=== PATIENT | male | born 1970 | race African-American/Black ===

== ENCOUNTER 2017-01-14 08:30 | Inpatient (IN) | payer OTHER ==
[2017-01-14 09:29] VITALS: BMI 32.9
--- NOTE | 2017-01-14 12:22 | HP ---
COWS - Scale Resting Pulse: 1= [place] 81-100 Sweatin=Flushed/Facial Moisture Restless Observation: 1= Difficult to Sit Still Pupil Size: 0= Normal to Room Light Bone or Joint Aches: 2= Severe Diffuse Aches Runny Nose/ Eye Tearin= Nasal Congestion GI Upset > 30mins: 1= Stomach Cramp Tremor Observation: 2= Slight Tremor Visible Yawning Observation: 2= >3x During Session Anxiety or Irritability: 2=Irritable/Anxious Goose Flesh Skin: 3=Piloerection COWS Score: 17 Admission ROS BHS - HPI Chief Complaint: I need to stop and change and get my life back. Allergies/Adverse Reactions: Allergies Allergy/AdvReac Type Severity Reaction Status Date / Time No Known Allergies Allergy Verified 01/14/17 10:25 History of Present Illness: pt is a 46yr old male with a history of heroin dependence seeking detox for treatment. Exam Limitations: No Limitations - Ebola screening Have you traveled outside of the country in the last 21 days: No Have you had contact with anyone from an Ebola affected area: No Have you been sick,other than usual withdrawal symptoms: No Do you have a fever: No - Review of Systems Constitutional: No Symptoms Reported EENT: reports: Nose Congestion Respiratory: reports: No Symptoms reported Cardiac: reports: No Symptoms Reported GI: reports: Poor Fluid Intake : reports: No Symptoms Reported Musculoskeletal: reports: No Symptoms Reported Integumentary: reports: Flushing, Sweating Neuro: reports: No Symptoms reported Endocrine: reports: Excessive Sweating, Flushing Hematology: reports: No Symptoms Reported Psychiatric: reports: Judgement Intact, Mood/Affect Appropiate, Orientated x3, Agitated, Anxious Other Systems: Reviewed and Negative Patient History - Patient Medical History Hx Anemia: No Hx Asthma: Yes (as a child) Hx Chronic Obstructive Pulmonary Disease (COPD): No Hx Cancer: No Hx Cardiac Disorders: No Hx Congestive Heart Failure: No Hx Hypertension: No Hx Hypercholesterolemia: No Hx Pacemaker: No HX Cerebrovascular Accident: No Hx Seizures: No Hx Dementia: No Hx Diabetes: No Hx Gastrointestinal Disorders: No Hx Liver Disease: No Hx Genitourinary Disorders: No Hx Sexually Transmitted Disorders: No Hx Renal Disease (ESRD): No Hx Thyroid Disease: No Hx Human Immunodeficiency Virus (HIV): No (negative) Hx Hepatitis C: No (negative) Hx Depression: No Hx Suicide Attempt: No (denies) Hx Bipolar Disorder: No Hx Schizophrenia: No - Patient Surgical History Past Surgical History: No Hx Neurologic Surgery: No Hx Cataract Extraction: No Hx Cardiac Surgery: No Hx Lung Surgery: No Hx Breast Surgery: No Hx Breast Biopsy: No Hx Abdominal Surgery: No Hx Appendectomy: No Hx Cholecystectomy: No Hx Genitourinary Surgery: No Hx Section: No Hx Orthopedic Surgery: No Anesthesia Reaction: No - PPD History Previous Implant?: Yes Documented Results: Negative w/o proof Implanted On Prior R Admission?: No PPD to be Administered?: Yes - Reproductive History Patient is a Female of Child Bearing Age (11 -55 yrs old): No - Smoking Cessation Smoking history: Current every day smoker Have you smoked in the past 12 months: Yes Aproximately how many cigarettes per day: 20 Hx Chewing Tobacco Use: No Initiated information on smoking cessation: Yes 'Breaking Loose' booklet given: 01/14/17 - Substance & Tx. History Hx Alcohol Use: No Hx Substance Use: Yes Substance Use Type: Heroin Hx Substance Use Treatment: Yes (last detox a year ago [facility] in [place]) - Substances Abused Heroin Route: Inhalation Frequency: Daily Amount used: 10 bags Age of first use: 35 Date of Last Use: 01/13/17 Family Disease History - Family Disease History Family History: Denies Admission Physical Exam BHS - Vital Signs Vital Signs: Vital Signs - 24 hr 01/14/17 09:26 Temperature 97.9 F Pulse Rate 94 H Respiratory 20 Rate Blood Pressure 111/76 - Physical General Appearance: Yes: Appropriately Dressed, Mild Distress, Tremorous, Irritable, Sweating, Anxious HEENTM: Yes: Hearing grossly Normal, Normal Voice, Nasal Congestion, Rhinorrhea Respiratory: Yes: Lungs Clear, Normal Breath Sounds, No Respiratory Distress Neck: Yes: No masses,lesions,Nodules Breast: Yes: Within Normal Limits Cardiology: Yes: Regular Rhythm, Regular Rate, S1, S2 Abdominal: Yes: Normal Bowel Sounds, Non Tender, Soft Genitourinary: Yes: Within Normal Limits Back: Yes: Normal Inspection Musculoskeletal: Yes: full range of Motion, Back pain Extremities: Yes: Normal Capillary Refill, Normal Inspection, Non-Tender, Tremors Neurological: Yes: Fully Oriented, Alert, Normal Response Integumentary: Yes: Normal Color, Diaphoresis Lymphatic: Yes: Within Normal Limits - Diagnostic (1) Opioid dependence with withdrawal Current Visit: Yes Status: Chronic (2) Nicotine dependence Current Visit: Yes Status: Chronic Qualifiers: Nicotine product type: cigarettes Substance use status: uncomplicated Qualified Code(s): F17.210 - Nicotine dependence, cigarettes, uncomplicated Cleared for Admission BHS - Detox or Rehab [facility] Level of Care: Medically Managed Detox Regimen/Protocol: Methadone S Breath Alcohol Content Breath Alcohol Content: 0 Urine Drug Screen - Results Drug Screen Negative: No Urine Drug Screen Results: OPI-Opiates
[2017-01-14] MEDS ORDERED: MAGNESIUM CITRATE 300 ML BOTTLE PO PRN (12:23)
[2017-01-14] MEDS ORDERED: P-EPHED 60MG/TRIPROLIDI 2.5MG TABLET PO PRN (12:23)
[2017-01-14] MEDS ORDERED: NICOTINE POLACRILEX 4 MG GUM BC PRN (12:23)
[2017-01-14] MEDS ORDERED: MAGNESIUM HYDROX 2400MG/30ML ORAL SUSPENSION 30 ML CUP PO PRN (12:23)
[2017-01-14] MEDS ORDERED: MAG HYDROX/AL HYDROX/SIMETH 30 ML UNIT-DOSE CUP PO PRN (12:23)
[2017-01-14] MEDS ORDERED: guaiFENesin/D-METHORPHAN HB 10 ML UNIT-DOSE CUPS PO PRN (12:23)
[2017-01-14] MEDS ORDERED: IBUPROFEN 400 MG TABLET (FP) PO PRN (12:23)
[2017-01-14] MEDS ORDERED: LOPERAMIDE HCL 2 MG CAPSULE PO PRN (12:23)
[2017-01-14] MEDS ORDERED: MENTHOL/PHENOL 1 EACH UD MM PRN (12:23)
[2017-01-14] MEDS ORDERED: ACETAMINOPHEN 325 MG TABLET (FP) PO PRN (12:23)
[2017-01-14] MEDS ORDERED: hydrOXYzine PAMOATE 50 MG CAPSULE (FP) PO PRN (12:23)
[2017-01-14] MEDS ORDERED: METHADONE HCL 10 MG TABLET (FOR DETOX USE ONLY) PO ONE ×2 (13:30→23:00)
[2017-01-14] MEDS: diazePAM 5 MG TABLET PO PRN ×2 (13:32→22:38)
[2017-01-14 17:33] LABS: MCH 26.8 pg (25.7-33.7); MCHC 33.1 g/dl (32.0-35.9); MEAN PLT VOLUME 8.5 fl (7.5-11.1); PLATELET COUNT 248 K/MM3 (134-434); RDW 15.9 % (11.9-15.9); WHITE BLOOD COUNT 12.2 K/mm3 (4.0-10.0)
[2017-01-14 17:41] LABS: URINE APPEARANCE CLEAR; URINE BILIRUBIN NEGATIVE (NEGATIVE); URINE BLOOD 1+ (NEGATIVE); URINE COLOR YELLOW; URINE GLUCOSE (UA) NEGATIVE (NEGATIVE); URINE KETONE NEGATIVE (NEGATIVE); URINE LEUK ESTERASE NEGATIVE (NEGATIVE); URINE NITRITE NEGATIVE (NEGATIVE); URINE PROTEIN NEGATIVE (NEGATIVE); URINE UROBILINOGEN NEGATIVE mg/dL (0.2-1.0)
[2017-01-14 17:47] LABS: URINE MUCUS RARE; URINE RBC 1 /hpf (0-3); URINE WBC 1 /hpf (3-5)
[2017-01-14 18:56] LABS: ANION GAP 9 (8-16); CALCIUM 9.1 mg/dL (8.5-10.1); CO2 27 mmol/L (21-32); CREATININE 1.1 mg/dL (0.7-1.3); GLUCOSE,RANDOM 90 mg/dL (74-106); SGOT/AST 11 U/L (15-37); SGPT/ALT 20 U/L (12-78)
[2017-01-14 18:58] LABS: ALK PHOS 81 U/L (45-117); BILIRUBIN,TOTAL 0.6 mg/dL (0.2-1.0); TOT PROT 7.2 g/dl (6.4-8.2)
[2017-01-14] MEDS: THIAMINE HCL 100 MG TABLET (FP) PO SCH (22:38)
[2017-01-14] MEDS: diphenhydrAMINE HCL 50 MG CAPSULE PO PRN (22:39)
[2017-01-15] MEDS ORDERED: METHADONE HCL 10 MG TABLET (FOR DETOX USE ONLY) PO ONE (10:00)
[2017-01-15] MEDS: PRENATAL VITAMINS W/ FOLIC ACID TABLET (FP) PO SCH (10:34)
[2017-01-15] MEDS: NICOTINE 21 MG/24 HOURS TOPICAL PATCH TD SCH (10:35)
--- NOTE | 2017-01-15 11:55 | PN ---
S COWS - Scale Resting Pulse: 1= [place] 81-100 Sweatin= Chills/Flushing Restless Observation: 1= Difficult to Sit Still Pupil Size: 1= Pupils >than Normal Bone or Joint Aches: 1= Mild Discomfort Runny Nose/ Eye Tearin= Nasal Congestion GI Upset > 30mins: 2= Nausea/Diarrhea Tremor Observation of Outstretched Hands: 2= Slight Tremor Visible Yawning Observation: 1= 1-2x During Session Anxiety or Irritability: 2=Irritable/Anxious Goose Flesh Skin: 3=Piloerection COWS Score: 16 BHS Progress Note (SOAP) Subjective: [place]a, sweats, interrupted sleep, anxiety, tremors Objective: 01/15/17 11:54 Vital Signs - 24 hr 01/14/17 01/14/17 01/14/17 14:44 17:44 22:03 Temperature 97.9 F 97.9 F 98.0 F Pulse Rate 96 H 83 81 Respiratory 18 18 18 Rate Blood Pressure 111/63 106/75 116/77 01/15/17 01/15/17 01/15/17 00:30 03:30 06:48 Temperature 97.7 F Pulse Rate 78 Respiratory 18 18 18 Rate Blood Pressure 119/70 01/15/17 10:14 Temperature 98.2 F Pulse Rate 90 Respiratory 18 Rate Blood Pressure 122/86 Laboratory Tests 01/14/17 01/14/17 01/14/17 12:00 13:00 13:00 WBC 12.2 H RBC 5.38 Hgb 14.4 Hct 43.6 MCV 81.0 MCH 26.8 MCHC 33.1 RDW 15.9 Plt Count 248 MPV 8.5 Sodium 142 Potassium 4.7 Chloride 106 Carbon Dioxide 27 Anion Gap 9 BUN 16 Creatinine 1.1 Creat Clearance w eGFR > 60 Random Glucose 90 Calcium 9.1 Total Bilirubin 0.6 AST 11 L ALT 20 Alkaline Phosphatase 81 Total Protein 7.2 Albumin 4.0 Urine Color Yellow Urine Appearance Clear Urine pH 5.0 Ur Specific [place] 1.025 Urine Protein Negative Urine Glucose (UA) Negative Urine Ketones Negative Urine Blood 1+ H Urine Nitrite Negative Urine Bilirubin Negative Urine Urobilinogen Negative Ur Leukocyte Esterase Negative Urine RBC 1 Urine WBC 1 Ur Epithelial Cells Rare Urine Mucus Rare RPR Titer 01/14/17 13:00 WBC RBC Hgb Hct MCV MCH MCHC RDW Plt Count MPV Sodium Potassium Chloride Carbon Dioxide Anion Gap BUN Creatinine Creat Clearance w eGFR Random Glucose Calcium Total Bilirubin AST ALT Alkaline Phosphatase Total Protein Albumin Urine Color Urine Appearance Urine pH Ur Specific [place] Urine Protein Urine Glucose (UA) Urine Ketones Urine Blood Urine Nitrite Urine Bilirubin Urine Urobilinogen Ur Leukocyte Esterase Urine RBC Urine WBC Ur Epithelial Cells Urine Mucus RPR Titer Nonreactive Assessment: 01/15/17 11:55 withdrawal sx Plan: cont detox, fluids
--- NOTE | 2017-01-15 12:32 | EKG ---
Test Reason : Blood Pressure : / mmHG Vent. Rate : 089 BPM Atrial Rate : 089 BPM P-R Int : 144 ms QRS Dur : 074 ms QT Int : 332 ms P-R-T Axes : 045 048 019 degrees QTc Int : 403 ms NORMAL SINUS RHYTHM NONSPECIFIC T WAVE ABNORMALITY ABNORMAL ECG NO PREVIOUS ECGS AVAILABLE Confirmed by JUAINTA WARE MD ([id number]) on 01/15/2017 12:31:44 PM Referred By: Confirmed By:JUANITA WARE MD
[2017-01-15] MEDS: diazePAM 5 MG TABLET PO PRN (22:55)
[2017-01-15] MEDS: diphenhydrAMINE HCL 50 MG CAPSULE PO PRN (22:55)
[2017-01-15] MEDS: THIAMINE HCL 100 MG TABLET (FP) PO SCH (22:55)
--- NOTE | 2017-01-16 09:52 | PN ---
S COWS - Scale Resting Pulse: 1= [place] 81-100 Sweatin= Chills/Flushing Restless Observation: 1= Difficult to Sit Still Pupil Size: 1= Pupils >than Normal Bone or Joint Aches: 1= Mild Discomfort Runny Nose/ Eye Tearin= Nasal Congestion GI Upset > 30mins: 2= Nausea/Diarrhea Tremor Observation of Outstretched Hands: 2= Slight Tremor Visible Yawning Observation: 1= 1-2x During Session Anxiety or Irritability: 2=Irritable/Anxious Goose Flesh Skin: 3=Piloerection COWS Score: 16 BHS Progress Note (SOAP) Subjective: nausea, sweats, interrupted sleep, anxiety, tremors Objective: 01/16/17 09:52 Vital Signs - 24 hr 01/15/17 01/15/17 01/15/17 10:14 14:16 20:11 Temperature 98.2 F 98.4 F 98.2 F Pulse Rate 90 93 H 99 H Respiratory 18 18 20 Rate Blood Pressure 122/86 105/70 114/68 01/15/17 01/16/17 01/16/17 21:32 00:30 06:53 Temperature 99.1 F 98.1 F Pulse Rate 71 95 H Respiratory 16 18 20 Rate Blood Pressure 145/88 113/72 Laboratory Tests 01/14/17 01/14/17 01/14/17 12:00 13:00 13:00 WBC 12.2 H RBC 5.38 Hgb 14.4 Hct 43.6 MCV 81.0 MCH 26.8 MCHC 33.1 RDW 15.9 Plt Count 248 MPV 8.5 Sodium 142 Potassium 4.7 Chloride 106 Carbon Dioxide 27 Anion Gap 9 BUN 16 Creatinine 1.1 Creat Clearance w eGFR > 60 Random Glucose 90 Calcium 9.1 Total Bilirubin 0.6 AST 11 L ALT 20 Alkaline Phosphatase 81 Total Protein 7.2 Albumin 4.0 Urine Color Yellow Urine Appearance Clear Urine pH 5.0 Ur Specific [place] 1.025 Urine Protein Negative Urine Glucose (UA) Negative Urine Ketones Negative Urine Blood 1+ H Urine Nitrite Negative Urine Bilirubin Negative Urine Urobilinogen Negative Ur Leukocyte Esterase Negative Urine RBC 1 Urine WBC 1 Ur Epithelial Cells Rare Urine Mucus Rare RPR Titer 01/14/17 13:00 WBC RBC Hgb Hct MCV MCH MCHC RDW Plt Count MPV Sodium Potassium Chloride Carbon Dioxide Anion Gap BUN Creatinine Creat Clearance w eGFR Random Glucose Calcium Total Bilirubin AST ALT Alkaline Phosphatase Total Protein Albumin Urine Color Urine Appearance Urine pH Ur Specific [place] Urine Protein Urine Glucose (UA) Urine Ketones Urine Blood Urine Nitrite Urine Bilirubin Urine Urobilinogen Ur Leukocyte Esterase Urine RBC Urine WBC Ur Epithelial Cells Urine Mucus RPR Titer Nonreactive Assessment: 01/16/17 09:52 [email or web address] sx Plan: cont detox
[2017-01-16] MEDS ORDERED: METHADONE HCL 5 MG TABLET (FOR DETOX USE ONLY) PO ONE (10:00)
[2017-01-16] MEDS: PRENATAL VITAMINS W/ FOLIC ACID TABLET (FP) PO SCH (10:10)
[2017-01-16] MEDS: diazePAM 5 MG TABLET PO PRN (10:10)
[2017-01-16] MEDS: NICOTINE 21 MG/24 HOURS TOPICAL PATCH TD SCH (10:11)
[2017-01-16] MEDS ORDERED: ONDANSETRON *ODT* 4 MG TABLET SL PRN (12:06)
[2017-01-16] MEDS ORDERED: ONDANSETRON *ODT* 4 MG TABLET SL ONE (12:30)
[2017-01-16] MEDS: GABAPENTIN 100 MG CAPSULE (FP) PO SCH ×2 (14:00→22:20)
[2017-01-16] MEDS: CYCLOBENZAPRINE HCL 10 MG TABLET (FP) PO SCH ×2 (14:00→22:20)
[2017-01-16] MEDS: THIAMINE HCL 100 MG TABLET (FP) PO SCH (22:20)
[2017-01-16] MEDS: cloNIDine HCL 0.1 MG TABLET PO SCH (22:20)
[2017-01-16] MEDS: NAPROXEN 500 MG TABLET (FP) PO SCH (22:20)
[2017-01-17] MEDS: diazePAM 5 MG TABLET PO PRN (05:42)
[2017-01-17] MEDS: GABAPENTIN 100 MG CAPSULE (FP) PO SCH ×3 (05:42→22:14)
[2017-01-17] MEDS: CYCLOBENZAPRINE HCL 10 MG TABLET (FP) PO SCH ×3 (05:42→22:14)
[2017-01-17] MEDS ORDERED: PANTOPRAZOLE 40 MG TABLET (FP) PO SCH (10:00)
[2017-01-17] MEDS ORDERED: METHADONE HCL 5 MG TABLET (FOR DETOX USE ONLY) PO ONE ×2 (10:00)
[2017-01-17] MEDS: cloNIDine HCL 0.1 MG TABLET PO SCH ×2 (10:20→22:14)
[2017-01-17] MEDS: NAPROXEN 500 MG TABLET (FP) PO SCH ×2 (10:20→22:14)
[2017-01-17] MEDS: PRENATAL VITAMINS W/ FOLIC ACID TABLET (FP) PO SCH (10:21)
[2017-01-17] MEDS: NICOTINE 21 MG/24 HOURS TOPICAL PATCH TD SCH (10:21)
--- NOTE | 2017-01-17 12:14 | PN ---
BHS Progress Note (SOAP) Subjective: interrupted sleep, shakes and sweats Objective: 01/17/17 12:13 Vital Signs - 8 hr 01/17/17 01/17/17 06:48 10:00 Temperature 97.0 F L 98.4 F Pulse Rate 104 H 86 Respiratory 18 18 Rate Blood Pressure 137/110 104/71 Laboratory Last Values WBC 12.2 K/mm3 (4.0-10.0) H 01/14/17 13:00 RBC 5.38 M/mm3 (4.00-5.60) 01/14/17 13:00 Hgb 14.4 GM/dL (11.7-16.9) 01/14/17 13:00 Hct 43.6 % (35.4-49) 01/14/17 13:00 MCV 81.0 fl (80-96) 01/14/17 13:00 MCH 26.8 pg (25.7-33.7) 01/14/17 13:00 MCHC 33.1 g/dl (32.0-35.9) 01/14/17 13:00 RDW 15.9 % (11.9-15.9) 01/14/17 13:00 Plt Count 248 K/MM3 (134-434) 01/14/17 13:00 MPV 8.5 fl (7.5-11.1) 01/14/17 13:00 Sodium 142 mmol/L (136-145) 01/14/17 13:00 Potassium 4.7 mmol/L (3.5-5.1) 01/14/17 13:00 Chloride 106 mmol/L (98-107) 01/14/17 13:00 Carbon Dioxide 27 mmol/L (21-32) 01/14/17 13:00 Anion Gap 9 (8-16) 01/14/17 13:00 BUN 16 mg/dL (7-18) 01/14/17 13:00 Creatinine 1.1 mg/dL (0.7-1.3) 01/14/17 13:00 Creat Clearance w eGFR > 60 (>60) 01/14/17 13:00 Random Glucose 90 mg/dL (74-106) 01/14/17 13:00 Calcium 9.1 mg/dL (8.5-10.1) 01/14/17 13:00 Total Bilirubin 0.6 mg/dL (0.2-1.0) 01/14/17 13:00 AST 11 U/L (15-37) L 01/14/17 13:00 ALT 20 U/L (12-78) 01/14/17 13:00 Alkaline Phosphatase 81 U/L (45-117) 01/14/17 13:00 Total Protein 7.2 g/dl (6.4-8.2) 01/14/17 13:00 Albumin 4.0 g/dl (3.4-5.0) 01/14/17 13:00 Urine Color Yellow 01/14/17 12:00 Urine Appearance Clear 01/14/17 12:00 Urine pH 5.0 (5.0-8.0) 01/14/17 12:00 Ur Specific [place] 1.025 (1.005-1.025) 01/14/17 12:00 Urine Protein Negative (NEGATIVE) 01/14/17 12:00 Urine Glucose (UA) Negative (NEGATIVE) 01/14/17 12:00 Urine Ketones Negative (NEGATIVE) 01/14/17 12:00 Urine Blood 1+ (NEGATIVE) H 01/14/17 12:00 Urine Nitrite Negative (NEGATIVE) 01/14/17 12:00 Urine Bilirubin Negative (NEGATIVE) 01/14/17 12:00 Urine Urobilinogen Negative mg/dL (0.2-1.0) 01/14/17 12:00 Ur Leukocyte Esterase Negative (NEGATIVE) 01/14/17 12:00 Urine RBC 1 /hpf (0-3) 01/14/17 12:00 Urine WBC 1 /hpf (3-5) 01/14/17 12:00 Ur Epithelial Cells Rare /hpf (FEW) 01/14/17 12:00 Urine Mucus Rare 01/14/17 12:00 RPR Titer Nonreactive (NONREACTIVE) 01/14/17 13:00 lab noted Assessment: 01/17/17 12:14 withdrawal sx Plan: continue detox
[2017-01-17] MEDS: diphenhydrAMINE HCL 50 MG CAPSULE PO PRN (22:14)
[2017-01-17] MEDS: THIAMINE HCL 100 MG TABLET (FP) PO SCH (22:14)
[2017-01-18] MEDS: GABAPENTIN 100 MG CAPSULE (FP) PO SCH (05:24)
[2017-01-18] MEDS: CYCLOBENZAPRINE HCL 10 MG TABLET (FP) PO SCH (05:24)
[2017-01-18] MEDS: cloNIDine HCL 0.1 MG TABLET PO SCH (09:43)
[2017-01-18] MEDS: NAPROXEN 500 MG TABLET (FP) PO SCH (09:44)
[2017-01-18] MEDS: PRENATAL VITAMINS W/ FOLIC ACID TABLET (FP) PO SCH (09:44)
[2017-01-18] MEDS ORDERED: METHADONE HCL 10 MG TABLET (FOR DETOX USE ONLY) PO ONE (10:00)
[2017-01-18] MEDS ORDERED: METHADONE HCL 5 MG TABLET (FOR DETOX USE ONLY) PO ONE (10:00)
[2017-01-18 10:43] VITALS: BP 104/57; PULSE 92; TEMP 98.2
[2017-01-19] MEDS ORDERED: METHADONE HCL 5 MG TABLET (FOR DETOX USE ONLY) PO ONE (06:00)
== END 2017-01-18 10:01 | disposition home or self-care (01) | DRG 773 ==
LOC: YASAS 08:30 → Y6N 11:49
PROVIDERS: ADMIT Internal Medicine Addiction Medicine; ATTEND Internal Medicine Addiction Medicine
PROC: HZ2ZZZZ Detoxification Services for Substance Abuse Treatment (ICD-10-PCS; principal; 2017-01-14)
DX: F11.23 Opioid dependence with withdrawal (principal); F17.210 Nicotine dependence, cigarettes, uncomplicated
CPT/HCPCS: 36415; 80053; 81003; 81015; 85027; 86593; 93005; 93010

== ENCOUNTER 2017-05-21 08:16 | Inpatient (IN) | payer OTHER ==
[2017-05-21 09:17] VITALS: BMI 34.6
--- NOTE | 2017-05-21 10:53 | HP ---
COWS - Scale Resting Pulse: 2= [place] 101-120 Sweatin= Chills/Flushing Restless Observation: 1= Difficult to Sit Still Pupil Size: 1= Pupils >than Normal Bone or Joint Aches: 1= Mild Discomfort Runny Nose/ Eye Tearin= Nasal Congestion GI Upset > 30mins: 2= Nausea/Diarrhea Tremor Observation: 1= Tremor [place], Not Seen Yawning Observation: 1= 1-2x During Session Anxiety or Irritability: 2=Irritable/Anxious Goose Flesh Skin: 3=Piloerection COWS Score: 16 Admission ROS S - HPI Chief Complaint: c/o heroin withdrawal sx Allergies/Adverse Reactions: Allergies Allergy/AdvReac Type Severity Reaction Status Date / Time No Known Allergies Allergy Verified 05/21/17 09:22 History of Present Illness: 47yo m who was detoxed last month off of heroin relapsed to daiy use, reports onlyusing heorin although uds shows oxycodoen, benzodiazepine, tca, and methadone. no alcohol reported smokes 1PPD PMHx anxiety, depression and insomnia, c/o thirst no siezurss, or DTs, no SI at ths time. Yoav is requesting accelerated detox from methadone so he can leave early for drug testing in [place]. eliminated second 10mg dose, so 4 day detox not 5 - can extend if chasidy requests. Exam Limitations: No Limitations - Ebola screening Have you traveled outside of the country in the last 21 days: No (N) Have you had contact with anyone from an Ebola affected area: No Have you been sick,other than usual withdrawal symptoms: No Do you have a fever: No - Review of Systems Constitutional: Chills, Night Sweats, Changes in sleep, Weakness EENT: reports: Tearing, Nose Congestion Respiratory: reports: No Symptoms reported Cardiac: reports: No Symptoms Reported GI: reports: Diarrhea, Nausea, Poor Appetite, Poor Fluid Intake, Indigestion, Abdominal cramping : reports: No Symptoms Reported Musculoskeletal: reports: Back Pain, Joint Pain, Muscle Pain Integumentary: reports: Flushing, Sweating Neuro: reports: Headache, Tremors Endocrine: reports: Flushing Hematology: reports: No Symptoms Reported, Swollen Glands Psychiatric: reports: Judgement Intact, Mood/Affect Appropiate, Orientated x3, Agitated, Anxious, Depressed Other Systems: Reviewed and Negative Patient History - Patient Medical History Hx Anemia: No Hx Asthma: No Hx Chronic Obstructive Pulmonary Disease (COPD): No Hx Cancer: No Hx Cardiac Disorders: No Hx Congestive Heart Failure: No Hx Hypertension: No Hx Hypercholesterolemia: No Hx Pacemaker: No HX Cerebrovascular Accident: No Hx Seizures: No Hx Dementia: No Hx Diabetes: No Hx Gastrointestinal Disorders: No Hx Liver Disease: No Hx Genitourinary Disorders: No Hx Sexually Transmitted Disorders: No Hx Renal Disease (ESRD): No Hx Thyroid Disease: No Hx Human Immunodeficiency Virus (HIV): No (Last Tested: 2015: NEGATIVE.) Hx Hepatitis C: No (Last Tested: 2011: NEGATIVE.) Hx Depression: Yes Hx Suicide Attempt: No Hx Bipolar Disorder: No Hx Schizophrenia: No - Patient Surgical History Past Surgical History: No Hx Neurologic Surgery: No Hx Cataract Extraction: No Hx Cardiac Surgery: No Hx Lung Surgery: No Hx Breast Surgery: No Hx Breast Biopsy: No Hx Abdominal Surgery: No Hx Appendectomy: No Hx Cholecystectomy: No Hx Genitourinary Surgery: No Hx Section: No Hx Orthopedic Surgery: No Anesthesia Reaction: No - PPD History Previous Implant?: Yes Documented Results: Negative w/proof Date: 01/16/17 Results: 0 mm PPD to be Administered?: No - Reproductive History Patient is a Female of Child Bearing Age (11 -55 yrs old): No Patient : No - Smoking Cessation Smoking history: Current every day smoker Have you smoked in the past 12 months: Yes Aproximately how many cigarettes per day: 20 Cigars Per Day: 0 Hx Chewing Tobacco Use: No Initiated information on smoking cessation: Yes 'Breaking Loose' booklet given: 05/21/17 - Substance & Tx. History Hx Alcohol Use: No Hx Substance Use: Yes Substance Use Type: Heroin, Opiates Hx Substance Use Treatment: Yes ([facility]) - Substances Abused Heroin Route: Inhalation Frequency: Daily Amount used: 8 bags daily Age of first use: 35 Date of Last Use: 05/20/17 Family Disease History - Family Disease History Family History: Denies Admission Physical Exam BHS - Vital Signs Vital Signs: Vital Signs - 24 hr 05/21/17 09:16 Temperature 98.2 F Pulse Rate 102 H Respiratory 18 Rate Blood Pressure 118/69 - Physical General Appearance: Yes: No Apparent Distress, Nourished, Appropriately Dressed , Disheveled, Mild Distress, Irritable, Sweating, Anxious HEENTM: Yes: EOMI, Hearing grossly Normal, Normocephalic, Normal Voice, ALBER, Nasal Congestion, Rhinorrhea Respiratory: Yes: Within Normal Limits, Chest Non-Tender, Lungs Clear, No Respiratory Distress, No Accessory Muscle Use Neck: Yes: Within Normal Limits, No masses,lesions,Nodules, Trachea in good position Breast: Yes: Breast Exam Deferred Cardiology: Yes: Within Normal Limits, Regular Rhythm, Regular Rate, S1, S2 Abdominal: Yes: Normal Bowel Sounds, Non Tender, Flat, Soft, Increased Bowel Sounds, Protuberent, Distended Genitourinary: Yes: Within Normal Limits Back: Yes: Within Normal Limits, Normal Inspection Musculoskeletal: Yes: full range of Motion, Gait Steady, Back pain, Muscle Pain Extremities: Yes: Normal Capillary Refill, Normal Range of Motion, Non-Tender, Tremors Neurological: Yes: Fully Oriented, Alert, Motor Strength 5/5, Normal Response, Depressed Affect Integumentary: Yes: Normal Color, Dry, Warm, Diaphoresis, Moist Lymphatic: Yes: Within Normal Limits - Addiitonal Findings: withdrawal sx - Diagnostic (1) Depression Current Visit: Yes Status: Acute (2) Dehydration Current Visit: Yes Status: Acute (3) Insomnia Current Visit: Yes Status: Acute (4) Anxiety Current Visit: Yes Status: Acute (5) Opioid dependence with withdrawal Current Visit: No Status: Acute (6) Nicotine dependence Current Visit: No Status: Chronic Qualifiers: Nicotine product type: cigarettes Substance use status: uncomplicated Qualified Code(s): F17.210 - Nicotine dependence, cigarettes, uncomplicated Cleared for Admission [facility] - Detox or Rehab [facility] Level of Care: Medically Managed Detox Regimen/Protocol: Methadone [facility] Breath Alcohol Content Breath Alcohol Content: 0 Urine Drug Screen - Results Drug Screen Negative: No Urine Drug Screen Results: OPI-Opiates, BZO-Benzodiazepines, MTD-Methadone, TCA- Tricyclic Antidepress, OXY-Oxycodone
[2017-05-21] MEDS ORDERED: IBUPROFEN 400 MG TABLET (FP) PO PRN (10:57)
[2017-05-21] MEDS ORDERED: MAGNESIUM CITRATE 300 ML BOTTLE PO PRN (10:57)
[2017-05-21] MEDS ORDERED: MENTHOL/PHENOL 1 EACH UD MM PRN (10:57)
[2017-05-21] MEDS ORDERED: P-EPHED 60MG/TRIPROLIDI 2.5MG TABLET PO PRN (10:57)
[2017-05-21] MEDS ORDERED: LOPERAMIDE HCL 2 MG CAPSULE PO PRN (10:57)
[2017-05-21] MEDS ORDERED: ACETAMINOPHEN 325 MG TABLET (FP) PO PRN (10:57)
[2017-05-21] MEDS ORDERED: guaiFENesin/D-METHORPHAN HB 10 ML UNIT-DOSE CUPS PO PRN (10:57)
[2017-05-21] MEDS ORDERED: MAG HYDROX/AL HYDROX/SIMETH 30 ML UNIT-DOSE CUP PO PRN (10:57)
[2017-05-21] MEDS ORDERED: MAGNESIUM HYDROX 2400MG/30ML ORAL SUSPENSION 30 ML CUP PO PRN (10:57)
[2017-05-21] MEDS ORDERED: NICOTINE POLACRILEX 4 MG GUM BUC PRN (10:58)
[2017-05-21] MEDS ORDERED: METHADONE HCL 10 MG TABLET (FOR DETOX USE ONLY) PO ONE ×2 (12:34→23:00)
[2017-05-21] MEDS: diazePAM 5 MG TABLET PO PRN ×2 (12:58→22:18)
[2017-05-21] MEDS: NICOTINE 21 MG/24 HOURS TOPICAL PATCH TD SCH (12:59)
[2017-05-21] MEDS ORDERED: hydrOXYzine PAMOATE 50 MG CAPSULE (FP) PO PRN (15:02)
--- NOTE | 2017-05-21 15:14 | CONSULT ---
[facility] Psychiatric Consult - Data Date of interview: 05/21/17 Admission source: [facility] Identifying data: Pt is a 47 year old male, single, father of one, begins work on 05/31/2017, and is currently homeless. This is one of multiple admission to [facility]. Pt. admitted to for opiate dependence. Substance Abuse History: Following information confirmed with Mr. Hubbard: - Smoking Cessation. Smoking history: Current every day smoker. Have you smoked in the past 12 months: Yes. Aproximately how many cigarettes per day: 20. Cigars Per Day: 0. Hx Chewing Tobacco Use: No. Initiated information on smoking cessation: Yes. 'Breaking Loose' booklet given: 05/21/17. - Substance & Tx. History. Hx Alcohol Use: No. Hx Substance Use: Yes. Substance Use Type : Heroin, Opiates. Hx Substance Use Treatment: Yes ([facility]). - Substances Abused. Heroin. Route: Inhalation. Frequency: Daily. Amount used: 8 bags daily. Age of first use: 35. Date of Last Use: 05/20/17 Medical History: Denies. Psychiatric History: Pt. self reports anxiety secondary to his aunt's passing 3 weeks ago. Reports thinking about . States he is afraid that what happen to her (aunt had a heart attack in her sleep) will happen to him. Pt. denies h/ o psychiatric hospitalization, suicide attempts, and OPC. Physical/Sexual Abuse/Trauma History: Denies. Additional Comment: Urine Drug Screen Results: OPI-Opiates, BZO-Benzodiazepines , MTD-Methadone, TCA-Tricyclic Antidepress, OXY-Oxycodone Mental Status Exam - Mental Status Exam Alert and Oriented to: Time, Place, Person Cognitive Function: Good Patient Appearance: Well Groomed Mood: Euthymic Affect: Mood Congruent Patient Behavior: Cooperative Speech Pattern: Appropriate Voice Loudness: Normal Thought Process: Goal Oriented Thought Disorder: Not Present Hallucinations: Denies Suicidal Ideation: Denies Homicidal Ideation: Denies Insight/Judgement: Poor Sleep: Fair Appetite: Fair Muscle strength/Tone: Normal Gait/Station: Normal Psychiatric Findings - Problem List ([place] 1, 2,3) (1) Opioid dependence with withdrawal Current Visit: Yes Status: Acute (2) Nicotine dependence Current Visit: Yes Status: Chronic Qualifiers: Nicotine product type: cigarettes Substance use status: uncomplicated Qualified Code(s): F17.210 - Nicotine dependence, cigarettes, uncomplicated (3) Anxiety Current Visit: Yes Status: Acute Comment: Self reports. Vistaril 50mg ordered every 6 hours as needed. - Initial Treatment Plan Initial Treatment Plan: Psychoeducation provided. Detoxification provided. Vistaril 50mg q6hr ordered for anxiety. Benefits and side effects discussed. Verbal consent given. Will continue to monitor.
[2017-05-21 15:50] LABS: MCH 26.2 pg (25.7-33.7); MEAN PLT VOLUME 8.3 fl (7.5-11.1); PLATELET COUNT 256 K/MM3 (134-434); RBC 5.73 M/mm3 (4.00-5.60); RDW 16.3 % (11.9-15.9); WHITE BLOOD COUNT 8.9 K/mm3 (4.0-10.0)
[2017-05-21 16:03] LABS: ALBUMIN 4.1 g/dl (3.4-5.0); ANION GAP 10 (8-16); BLOOD UREA NITROGEN 14 mg/dL (7-18); CHLORIDE 106 mmol/L (98-107); CO2 24 mmol/L (21-32); GLUCOSE,RANDOM 130 mg/dL (74-106); POTASSIUM 4.1 mmol/L (3.5-5.1); SODIUM 140 mmol/L (136-145)
[2017-05-21 16:09] LABS: ALK PHOS 88 U/L (45-117); BILIRUBIN,TOTAL 0.5 mg/dL (0.2-1.0); CREATININE 1.2 mg/dL (0.7-1.3); SGOT/AST 12 U/L (15-37); SGPT/ALT 18 U/L (12-78); TOT PROT 7.5 g/dl (6.4-8.2)
[2017-05-21] MEDS: THIAMINE HCL 100 MG TABLET (FP) PO SCH (22:17)
[2017-05-21 23:35] LABS: URINE APPEARANCE TURBID; URINE BILIRUBIN NEGATIVE (NEGATIVE); URINE BLOOD NEGATIVE (NEGATIVE); URINE COLOR YELLOW; URINE GLUCOSE (UA) NEGATIVE (NEGATIVE); URINE KETONE NEGATIVE (NEGATIVE); URINE LEUK ESTERASE NEGATIVE (NEGATIVE); URINE NITRITE NEGATIVE (NEGATIVE); URINE PROTEIN NEGATIVE (NEGATIVE)
[2017-05-22] MEDS ORDERED: METHADONE HCL 10 MG TABLET (FOR DETOX USE ONLY) PO ONE (10:00)
[2017-05-22] MEDS ORDERED: CYCLOBENZAPRINE HCL 10 MG TABLET (FP) PO PRN (10:02)
[2017-05-22] MEDS: PRENATAL VITAMINS W/ FOLIC ACID TABLET (FP) PO SCH (10:22)
[2017-05-22] MEDS: NICOTINE 21 MG/24 HOURS TOPICAL PATCH TD SCH (10:42)
--- NOTE | 2017-05-22 15:13 | PN ---
BHS COWS - Scale Resting Pulse: 1= [place] 81-100 Sweatin= Chills/Flushing Restless Observation: 3= Extraneous Movement Pupil Size: 0= Normal to Room Light Bone or Joint Aches: 2= Severe Diffuse Aches Runny Nose/ Eye Tearin= Runny Nose/Eyes GI Upset > 30mins: 1= Stomach Cramp Tremor Observation of Outstretched Hands: 2= Slight Tremor Visible Yawning Observation: 1= 1-2x During Session Anxiety or Irritability: 2=Irritable/Anxious Goose Flesh Skin: 0=Smooth Skin COWS Score: 15 BHS Progress Note (SOAP) Subjective: Sweating, anxious, back pain, restless Objective: 05/22/17 15:08 Last Vital Signs Temp Pulse Resp BP Pulse Ox 98.5 F 99 H 18 121/83 05/22/17 10:21 05/22/17 10:21 05/22/17 10:21 05/22/17 10:21 Laboratory Tests 05/21/17 05/21/17 05/21/17 11:30 11:30 11:30 WBC 8.9 RBC 5.73 H Hgb 15.0 Hct 47.0 MCV 82.0 MCH 26.2 MCHC 32.0 RDW 16.3 H Plt Count 256 MPV 8.3 Sodium 140 Potassium 4.1 Chloride 106 Carbon Dioxide 24 D Anion Gap 10 BUN 14 D Creatinine 1.2 Creat Clearance w eGFR > 60 Random Glucose 130 H D Calcium 9.0 Total Bilirubin 0.5 D AST 12 L ALT 18 Alkaline Phosphatase 88 Total Protein 7.5 Albumin 4.1 Urine Color Urine Appearance Urine pH Ur Specific [place] Urine Protein Urine Glucose (UA) Urine Ketones Urine Blood Urine Nitrite Urine Bilirubin Urine Urobilinogen Ur Leukocyte Esterase RPR Titer Nonreactive 05/21/17 21:00 WBC RBC Hgb Hct MCV MCH MCHC RDW Plt Count MPV Sodium Potassium Chloride Carbon Dioxide Anion Gap BUN Creatinine Creat Clearance w eGFR Random Glucose Calcium Total Bilirubin AST ALT Alkaline Phosphatase Total Protein Albumin Urine Color Yellow Urine Appearance Turbid Urine pH 5.0 Ur Specific [place] 1.033 Urine Protein Negative Urine Glucose (UA) Negative Urine Ketones Negative Urine Blood Negative Urine Nitrite Negative Urine Bilirubin Negative Urine Urobilinogen 2.0 Ur Leukocyte Esterase Negative RPR Titer Labs noted: serum glucose 130 Assessment: 05/22/17 15:10 Withdrawal symptoms Noted with hyperglycemia Plan: Continue detox Hyperglycemia: send fasting glucose
[2017-05-22] MEDS: THIAMINE HCL 100 MG TABLET (FP) PO SCH (22:14)
[2017-05-22] MEDS: diazePAM 5 MG TABLET PO PRN (22:16)
[2017-05-23] MEDS ORDERED: TRIMETHOBENZAMIDE HCL 200MG/2ML INJ IM PRN (06:46)
[2017-05-23] MEDS ORDERED: METHADONE HCL 5 MG TABLET (FOR DETOX USE ONLY) PO ONE (10:00)
[2017-05-23] MEDS: diazePAM 5 MG TABLET PO PRN ×2 (10:27→22:26)
[2017-05-23] MEDS: PRENATAL VITAMINS W/ FOLIC ACID TABLET (FP) PO SCH (10:27)
[2017-05-23] MEDS: NICOTINE 21 MG/24 HOURS TOPICAL PATCH TD SCH (10:27)
--- NOTE | 2017-05-23 13:26 | PN ---
BHS COWS - Scale Resting Pulse: 1= [place] 81-100 Sweatin= Chills/Flushing Restless Observation: 1= Difficult to Sit Still Pupil Size: 0= Normal to Room Light Bone or Joint Aches: 2= Severe Diffuse Aches Runny Nose/ Eye Tearin= Runny Nose/Eyes GI Upset > 30mins: 2= Nausea/Diarrhea Tremor Observation of Outstretched Hands: 2= Slight Tremor Visible Yawning Observation: 0= None Anxiety or Irritability: 2=Irritable/Anxious Goose Flesh Skin: 0=Smooth Skin COWS Score: 13 BHS Progress Note (SOAP) Subjective: Shakes, sweats, chills, and back pain Objective: 05/23/17 13:26 Vital Signs - 8 hr 05/23/17 05/23/17 06:50 09:28 Temperature 97.4 F L 98.0 F Pulse Rate 81 105 H Respiratory 18 16 Rate Blood Pressure 149/94 134/87 Laboratory Last Values WBC 8.9 K/mm3 (4.0-10.0) 05/21/17 11:30 RBC 5.73 M/mm3 (4.00-5.60) H 05/21/17 11:30 Hgb 15.0 GM/dL (11.7-16.9) 05/21/17 11:30 Hct 47.0 % (35.4-49) 05/21/17 11:30 MCV 82.0 fl (80-96) 05/21/17 11:30 MCH 26.2 pg (25.7-33.7) 05/21/17 11:30 MCHC 32.0 g/dl (32.0-35.9) 05/21/17 11:30 RDW 16.3 % (11.9-15.9) H 05/21/17 11:30 Plt Count 256 K/MM3 (134-434) 05/21/17 11:30 MPV 8.3 fl (7.5-11.1) 05/21/17 11:30 Sodium 140 mmol/L (136-145) 05/21/17 11:30 Potassium 4.1 mmol/L (3.5-5.1) 05/21/17 11:30 Chloride 106 mmol/L (98-107) 05/21/17 11:30 Carbon Dioxide 24 mmol/L (21-32) D 05/21/17 11:30 Anion Gap 10 (8-16) 05/21/17 11:30 BUN 14 mg/dL (7-18) D 05/21/17 11:30 Creatinine 1.2 mg/dL (0.7-1.3) 05/21/17 11:30 Creat Clearance w eGFR > 60 (>60) 05/21/17 11:30 Random Glucose 130 mg/dL (74-106) H D 05/21/17 11:30 Fasting Glucose 87 mg/dL (70-105) 05/23/17 08:00 Hemoglobin A1c % 5.7 % (4.8-6.0) 05/23/17 08:00 Calcium 9.0 mg/dL (8.5-10.1) 05/21/17 11:30 Total Bilirubin 0.5 mg/dL (0.2-1.0) D 05/21/17 11:30 AST 12 U/L (15-37) L 05/21/17 11:30 ALT 18 U/L (12-78) 05/21/17 11:30 Alkaline Phosphatase 88 U/L (45-117) 05/21/17 11:30 Total Protein 7.5 g/dl (6.4-8.2) 05/21/17 11:30 Albumin 4.1 g/dl (3.4-5.0) 05/21/17 11:30 Urine Color Yellow 05/21/17 21:00 Urine Appearance Turbid 05/21/17 21:00 Urine pH 5.0 (5.0-8.0) 05/21/17 21:00 Ur Specific [place] 1.033 (1.001-1.035) 05/21/17 21:00 Urine Protein Negative (NEGATIVE) 05/21/17 21:00 Urine Glucose (UA) Negative (NEGATIVE) 05/21/17 21:00 Urine Ketones Negative (NEGATIVE) 05/21/17 21:00 Urine Blood Negative (NEGATIVE) 05/21/17 21:00 Urine Nitrite Negative (NEGATIVE) 05/21/17 21:00 Urine Bilirubin Negative (NEGATIVE) 05/21/17 21:00 Urine Urobilinogen 2.0 mg/dL (0.2-1.0) 05/21/17 21:00 Ur Leukocyte Esterase Negative (NEGATIVE) 05/21/17 21:00 RPR Titer Nonreactive (NONREACTIVE) 05/21/17 11:30 Labs noted Assessment: 05/23/17 13:26 Withdrawal sx Plan: Continue detox
--- NOTE | 2017-05-23 17:12 | EKG ---
Test Reason : Blood Pressure : / mmHG Vent. Rate : 091 BPM Atrial Rate : 091 BPM P-R Int : 136 ms QRS Dur : 070 ms QT Int : 336 ms P-R-T Axes : 045 063 020 degrees QTc Int : 413 ms NORMAL SINUS RHYTHM NORMAL ECG WHEN COMPARED WITH ECG OF 21-APR-2017 16:02, NONSPECIFIC T WAVE ABNORMALITY NO LONGER EVIDENT IN LATERAL LEADS Confirmed by RUSSEL KATE MD ([id number]) on 05/23/2017 5:12:24 PM Referred By: Confirmed By:RUSSEL KATE MD
[2017-05-23] MEDS: THIAMINE HCL 100 MG TABLET (FP) PO SCH (22:26)
[2017-05-24] MEDS ORDERED: METHADONE HCL 5 MG TABLET (FOR DETOX USE ONLY) PO ONE ×2 (08:44→10:00)
[2017-05-24 10:00] VITALS: BP 111/83; PULSE 104; TEMP 99.3
[2017-05-24] MEDS ORDERED: METHADONE HCL 10 MG TABLET (FOR DETOX USE ONLY) PO ONE (10:00)
[2017-05-24] MEDS: PRENATAL VITAMINS W/ FOLIC ACID TABLET (FP) PO SCH (10:04)
[2017-05-24] MEDS: NICOTINE 21 MG/24 HOURS TOPICAL PATCH TD SCH (10:06)
--- NOTE | 2017-05-24 16:03 | DS ---
[facility] Detox Discharge Summary Admission Date: 05/21/17 Discharge Date: 05/24/17 - History Present History: Opioid Dependence Additional Comments: AT TIME OF DISCHARGE FROM DETOX UNIT, PATIENT REPORTS THAT CURRENT DETOX SYMPTOMS ARE MINIMAL AND THAT HE FEELS WELL OVERALL. PATIENT GOING HOME TO RETURN TO WORK. PATIENT REPORTS THAT HE WILL CONSIDER LOCAL 12-STEP / NA OUTPATIENT PROGRAMS FOR AFTERCARE. PATIENT WAS DISCHARGED FROM DETOX UNIT IN STABLE MEDICAL CONDITION. Pertinent Past History: Depression, Nicotine Dependence, Insomnia, Anxiety, Dehydration. - Physical Exam Results Vital Signs: Vital Signs Temperature 99.3 F 05/24/17 09:59 Pulse Rate 104 H 05/24/17 09:59 Respiratory Rate 20 05/24/17 09:59 Blood Pressure 111/83 05/24/17 09:59 O2 Sat by Pulse Oximetry (%) Pertinent Admission Physical Exam Findings: WITHDRAWAL SYMPTOMS. Laboratory Tests 05/21/17 05/21/17 05/21/17 11:30 11:30 11:30 WBC 8.9 RBC 5.73 H Hgb 15.0 Hct 47.0 MCV 82.0 MCH 26.2 MCHC 32.0 RDW 16.3 H Plt Count 256 MPV 8.3 Sodium 140 Potassium 4.1 Chloride 106 Carbon Dioxide 24 D Anion Gap 10 BUN 14 D Creatinine 1.2 Creat Clearance w eGFR > 60 Random Glucose 130 H D Fasting Glucose Hemoglobin A1c % Calcium 9.0 Total Bilirubin 0.5 D AST 12 L ALT 18 Alkaline Phosphatase 88 Total Protein 7.5 Albumin 4.1 Urine Color Urine Appearance Urine pH Ur Specific [place] Urine Protein Urine Glucose (UA) Urine Ketones Urine Blood Urine Nitrite Urine Bilirubin Urine Urobilinogen Ur Leukocyte Esterase RPR Titer Nonreactive 05/21/17 05/23/17 05/23/17 21:00 08:00 08:00 WBC RBC Hgb Hct MCV MCH MCHC RDW Plt Count MPV Sodium Potassium Chloride Carbon Dioxide Anion Gap BUN Creatinine Creat Clearance w eGFR Random Glucose Fasting Glucose 87 Hemoglobin A1c % 5.7 Calcium Total Bilirubin AST ALT Alkaline Phosphatase Total Protein Albumin Urine Color Yellow Urine Appearance Turbid Urine pH 5.0 Ur Specific [place] 1.033 Urine Protein Negative Urine Glucose (UA) Negative Urine Ketones Negative Urine Blood Negative Urine Nitrite Negative Urine Bilirubin Negative Urine Urobilinogen 2.0 Ur Leukocyte Esterase Negative RPR Titer LABS NOTED. - Treatment Hospital Course: Detox Protocol Followed, Detoxed Safely, Responded well, Discharged Condition Good Patient has Accepted a Rehab Referral to: PT WILL PURSUE LOCAL 12-STEP/NA OUTPATIENT PROGRAMS FOR AFTERCARE. - Medication Discharge Medications: Ambulatory Orders NK [No Known Home Medication] 01/07/17 - Diagnosis (1) Anxiety Status: Acute (2) Dehydration Status: Acute (3) Insomnia Status: Acute Qualifiers: Insomnia type: unspecified Qualified Code(s): G47.00 - Insomnia, unspecified (4) Opioid dependence with withdrawal Status: Acute (5) Depression Status: Chronic Qualifiers: Depression Type: unspecified Qualified Code(s): F32.9 - Major depressive disorder, single episode, unspecified (6) Nicotine dependence Status: Chronic Qualifiers: Nicotine product type: cigarettes Substance use status: uncomplicated Qualified Code(s): F17.210 - Nicotine dependence, cigarettes, uncomplicated - AMA Did Patient Leave Against Medical Advice: No
[2017-05-25] MEDS ORDERED: METHADONE HCL 5 MG TABLET (FOR DETOX USE ONLY) PO ONE (06:00)
[2017-05-25] MEDS ORDERED: METHADONE HCL 10 MG TABLET (FOR DETOX USE ONLY) PO ONE (10:00)
== END 2017-05-24 10:30 | disposition home or self-care (01) | DRG 861 ==
LOC: YASAS 08:16 → Y3N 12:03
PROVIDERS: ADMIT Internal Medicine; ATTEND Internal Medicine
PROC: HZ2ZZZZ Detoxification Services for Substance Abuse Treatment (ICD-10-PCS; principal; 2017-05-21)
DX: F17.210 Nicotine dependence, cigarettes, uncomplicated (principal); F32.9 Major depressive disorder, single episode, unspecified; F41.9 Anxiety disorder, unspecified; G47.00 Insomnia, unspecified; E86.0 Dehydration
CPT/HCPCS: 36415; 80053; 81003; 82947; 83036; 85027; 86593; 93005; 93010

== ENCOUNTER 2017-06-24 08:23 | Inpatient (IN) | payer OTHER ==
[2017-06-24 09:52] VITALS: BMI 35.3
--- NOTE | 2017-06-24 10:22 | HP ---
COWS - Scale Resting Pulse: 2= [place] 101-120 Sweatin=Flushed/Facial Moisture Restless Observation: 1= Difficult to Sit Still Pupil Size: 1= Pupils >than Normal Bone or Joint Aches: 1= Mild Discomfort Runny Nose/ Eye Tearin= Nasal Congestion GI Upset > 30mins: 2= Nausea/Diarrhea Tremor Observation: 1= Tremor [place], Not Seen Yawning Observation: 1= 1-2x During Session Anxiety or Irritability: 2=Irritable/Anxious Goose Flesh Skin: 3=Piloerection COWS Score: 17 Admission ROS S - [facility] Chief Complaint: heroin withdrawal sx Allergies/Adverse Reactions: Allergies Allergy/AdvReac Type Severity Reaction Status Date / Time No Known Allergies Allergy Verified 06/24/17 09:59 History of Present Illness: 47 yo m withh/o opioid use diorder multiple inpateitn detoxes at [facility] recently relapsed after last detox becasue of deathin family requesting inpatietn detox from heroin pbecause of withdrwal sx, last used yesterday. PMHX depression, anxiety and insomnia c/o thirst. no suicidal ideation at this time, requsting accelrted detox for job interview. Exam Limitations: No Limitations - Ebola screening Have you traveled outside of the country in the last 21 days: No (N) Have you had contact with anyone from an Ebola affected area: No Have you been sick,other than usual withdrawal symptoms: No Do you have a fever: No - Review of Systems Constitutional: Chills, Diaphoresis, Night Sweats, Changes in sleep, Unintentional Wgt. Loss EENT: reports: Tearing, Nose Congestion Respiratory: reports: No Symptoms reported Cardiac: reports: No Symptoms Reported GI: reports: Diarrhea, Nausea, Poor Appetite, Poor Fluid Intake, Vomiting, Indigestion, Abdominal cramping : reports: No Symptoms Reported Musculoskeletal: reports: Back Pain, Joint Pain, Muscle Pain, Neck Pain Integumentary: reports: Flushing, Sweating Neuro: reports: Headache, Tremors Endocrine: reports: Increased Thirst Hematology: reports: No Symptoms Reported Psychiatric: reports: Judgement Intact, Mood/Affect Appropiate, Orientated x3, Anxious, Depressed Other Systems: Reviewed and Negative Patient History - Patient Medical History Hx Anemia: No Hx Asthma: No Hx Chronic Obstructive Pulmonary Disease (COPD): No Hx Cancer: No Hx Cardiac Disorders: No Hx Congestive Heart Failure: No Hx Hypertension: No Hx Hypercholesterolemia: No Hx Pacemaker: No HX Cerebrovascular Accident: No Hx Seizures: No Hx Dementia: No Hx Diabetes: No Hx Gastrointestinal Disorders: No Hx Liver Disease: No Hx Genitourinary Disorders: No Hx Sexually Transmitted Disorders: No Hx Renal Disease (ESRD): No Hx Thyroid Disease: No Hx Human Immunodeficiency Virus (HIV): No (Last Tested: 2015: NEGATIVE.) Hx Hepatitis C: No (Last Tested: 2011: NEGATIVE.) Hx Depression: Yes (when he withdraws, reports severe anxiety) Hx Suicide Attempt: No (no SI at thsi time) Hx Bipolar Disorder: No Hx Schizophrenia: No - Patient Surgical History Past Surgical History: No Hx Neurologic Surgery: No Hx Cataract Extraction: No Hx Cardiac Surgery: No Hx Lung Surgery: No Hx Breast Surgery: No Hx Breast Biopsy: No Hx Abdominal Surgery: No Hx Appendectomy: No Hx Cholecystectomy: No Hx Genitourinary Surgery: No Hx Section: No Hx Orthopedic Surgery: No Anesthesia Reaction: No - PPD History Previous Implant?: Yes Documented Results: Negative w/proof Implanted On Prior [facility] Admission?: Yes Date: 01/16/17 Results: 0 mm PPD to be Administered?: No - Reproductive History Patient is a Female of Child Bearing Age (11 -55 yrs old): No Patient : No - Smoking Cessation Smoking history: Current every day smoker Have you smoked in the past 12 months: Yes Aproximately how many cigarettes per day: 20 Cigars Per Day: 0 Hx Chewing Tobacco Use: No Initiated information on smoking cessation: Yes 'Breaking Loose' booklet given: 06/24/17 - Substance & Tx. History Hx Alcohol Use: No Hx Substance Use: Yes Substance Use Type: Heroin Hx Substance Use Treatment: Yes (detox [facility] last month) - Substances Abused Heroin Route: Inhalation Frequency: Daily Amount used: 4 bags Age of first use: 30 Date of Last Use: 06/23/17 Family Disease History - Family Disease History Family Disease History: Heart Disease: Mother Admission Physical Exam BHS - Vital Signs Vital Signs: Vital Signs - 24 hr 06/24/17 09:20 Temperature 97.7 F Pulse Rate 115 H Respiratory 18 Rate Blood Pressure 123/74 - Physical General Appearance: Yes: Nourished, Appropriately Dressed, Disheveled, Mild Distress, Tremorous, Irritable, Sweating, Anxious HEENTM: Yes: EOMI, Hearing grossly Normal, Normocephalic, Normal Voice, ALBER, Pharynx Normal, Nasal Congestion, Rhinorrhea Respiratory: Yes: Within Normal Limits, Chest Non-Tender, Lungs Clear, Normal Breath Sounds, No Respiratory Distress, No Accessory Muscle Use Neck: Yes: Within Normal Limits, No masses,lesions,Nodules, Supple, Trachea in good position Breast: Yes: Breast Exam Deferred Cardiology: Yes: Within Normal Limits, Regular Rhythm, Regular Rate, S1, S2 Abdominal: Yes: Within Normal Limits, Normal Bowel Sounds, Non Tender, Soft Genitourinary: Yes: Within Normal Limits Back: Yes: Within Normal Limits, Normal Inspection Musculoskeletal: Yes: full range of Motion, Gait Steady, Pelvis Stable Extremities: Yes: Normal Capillary Refill, Normal Range of Motion, Tremors Neurological: Yes: grain shipper II-XII NML intact, Fully Oriented, Alert, Motor Strength 5/5, Normal Response, Depressed Affect Integumentary: Yes: Normal Color, Warm Lymphatic: Yes: Within Normal Limits - Addiitonal Findings: withdrawal sx - Diagnostic (1) Anxiety Current Visit: No Status: Acute Comment: Self reports. Vistaril 50mg ordered every 6 hours as needed. (2) Dehydration Current Visit: No Status: Acute (3) Obesity Current Visit: No Status: Acute (4) Opioid dependence with withdrawal Current Visit: No Status: Acute (5) Depression Current Visit: No Status: Chronic Qualifiers: Depression Type: unspecified Qualified Code(s): F32.9 - Major depressive disorder, single episode, unspecified (6) Nicotine dependence Current Visit: No Status: Chronic Qualifiers: Nicotine product type: cigarettes Substance use status: uncomplicated Qualified Code(s): F17.210 - Nicotine dependence, cigarettes, uncomplicated Cleared for Admission [facility] - Detox or Rehab [facility] Level of Care: Medically Managed Detox Regimen/Protocol: Methadone [facility] Breath Alcohol Content Breath Alcohol Content: 0 Urine Drug Screen - Results Drug Screen Negative: No Urine Drug Screen Results: OPI-Opiates, MET-Methamphetamine, MDMA-Ecstasy, BZO- Benzodiazepines, MTD-Methadone, OXY-Oxycodone
[2017-06-24] MEDS ORDERED: LOPERAMIDE HCL 2 MG CAPSULE PO PRN (10:28)
[2017-06-24] MEDS ORDERED: P-EPHED 60MG/TRIPROLIDI 2.5MG TABLET PO PRN (10:28)
[2017-06-24] MEDS ORDERED: MAGNESIUM HYDROX 2400MG/30ML ORAL SUSPENSION 30 ML CUP PO PRN (10:28)
[2017-06-24] MEDS ORDERED: ACETAMINOPHEN 325 MG TABLET (FP) PO PRN (10:28)
[2017-06-24] MEDS ORDERED: IBUPROFEN 400 MG TABLET (FP) PO PRN (10:28)
[2017-06-24] MEDS ORDERED: MENTHOL/PHENOL 1 EACH UD MM PRN (10:28)
[2017-06-24] MEDS ORDERED: NICOTINE POLACRILEX 4 MG GUM BUC PRN (10:28)
[2017-06-24] MEDS ORDERED: MAG HYDROX/AL HYDROX/SIMETH 30 ML UNIT-DOSE CUP PO PRN (10:28)
[2017-06-24] MEDS ORDERED: MAGNESIUM CITRATE 300 ML BOTTLE PO PRN (10:28)
[2017-06-24] MEDS ORDERED: guaiFENesin/D-METHORPHAN HB 10 ML UNIT-DOSE CUPS PO PRN (10:28)
[2017-06-24] MEDS ORDERED: hydrOXYzine PAMOATE 50 MG CAPSULE (FP) PO PRN (10:28)
[2017-06-24] MEDS ORDERED: METHADONE HCL 10 MG TABLET (FOR DETOX USE ONLY) PO ONE ×2 (12:55→23:00)
[2017-06-24] MEDS: diazePAM 5 MG TABLET PO PRN ×2 (13:36→22:33)
[2017-06-24] MEDS: NICOTINE 21 MG/24 HOURS TOPICAL PATCH TD SCH (13:37)
--- NOTE | 2017-06-24 16:35 | EKG ---
Test Reason : Blood Pressure : / mmHG Vent. Rate : 098 BPM Atrial Rate : 098 BPM P-R Int : 152 ms QRS Dur : 072 ms QT Int : 354 ms P-R-T Axes : 035 046 020 degrees QTc Int : 451 ms NORMAL SINUS RHYTHM NORMAL ECG WHEN COMPARED WITH ECG OF 21-MAY-2017 14:03, NONSPECIFIC T WAVE ABNORMALITY NO LONGER EVIDENT IN ANTERIOR LEADS Confirmed by SONNY BLANCO MD ([id number]) on 06/24/2017 4:35:23 PM Referred By: Confirmed By:SONNY BLANCO MD
[2017-06-24 16:53] LABS: URINE APPEARANCE CLEAR; URINE BILIRUBIN NEGATIVE (NEGATIVE); URINE BLOOD NEGATIVE (NEGATIVE); URINE COLOR DKYELLOW; URINE GLUCOSE (UA) NEGATIVE (NEGATIVE); URINE KETONE NEGATIVE (NEGATIVE); URINE LEUK ESTERASE NEGATIVE (NEGATIVE); URINE NITRITE NEGATIVE (NEGATIVE); URINE PROTEIN NEGATIVE (NEGATIVE)
--- NOTE | 2017-06-24 17:58 | CONSULT ---
[facility] Psychiatric Consult - Data Date of interview: 06/24/17 Admission source: [facility] Identifying data: Pt is a 47 year old male, single, father of one, unemployed and is currently homeless. This is one of multiple admission to [facility]. Pt. admitted to for opiate dependence. Substance Abuse History: Following information confirmed with Mr. Hubbard: - Smoking Cessation. Smoking history: Current every day smoker. Have you smoked in the past 12 months: Yes. Aproximately how many cigarettes per day: 20. Cigars Per Day: 0. Hx Chewing Tobacco Use: No. Initiated information on smoking cessation: Yes. 'Breaking Loose' booklet given: 06/24/17. - Substance & Tx. History. Hx Alcohol Use: No. Hx Substance Use: Yes. Substance Use Type : Heroin. Hx Substance Use Treatment: Yes (detox [facility] last month). - Substances Abused. Heroin. Route: Inhalation. Frequency: Daily. Amount used: 4 bags. Age of first use: 30. Date of Last Use: 06/23/17 Medical History: Denies. Psychiatric History: Pt. denies h/o psychiatric hospitalizations, suicide attempts and outpatient psychiatric care. Pt. requesting a sleep aid. No anxiety reported today. Pt. reported severe anxiety during most recent admission on 05/21/2017. Physical/Sexual Abuse/Trauma History: Denies. Mental Status Exam - Mental Status Exam Alert and Oriented to: Time, Place, Person Cognitive Function: Good Patient Appearance: Well Groomed Mood: Euthymic Affect: Mood Congruent Patient Behavior: Appropriate, Cooperative Speech Pattern: Appropriate Voice Loudness: Normal Thought Process: Goal Oriented Thought Disorder: Not Present Hallucinations: Denies Suicidal Ideation: Denies Homicidal Ideation: Denies Insight/Judgement: Poor Sleep: Poorly Appetite: Fair Muscle strength/Tone: Normal Gait/Station: Normal Psychiatric Findings - Problem List ([place] 1, 2,3) (1) Insomnia Current Visit: Yes Status: Acute Qualifiers: Insomnia type: unspecified Qualified Code(s): G47.00 - Insomnia, unspecified (2) Opioid dependence with withdrawal Current Visit: Yes Status: Acute (3) Nicotine dependence Current Visit: Yes Status: Chronic Qualifiers: Nicotine product type: cigarettes Substance use status: uncomplicated Qualified Code(s): F17.210 - Nicotine dependence, cigarettes, uncomplicated - Initial Treatment Plan Initial Treatment Plan: Psychoeducation provided. Detoxification in progress. Benadryl 50mg qhs ordered for insomnia. Benefits and side effects discussed. Verbal consent given.
[2017-06-24] MEDS ORDERED: diphenhydrAMINE HCL 50 MG CAPSULE PO PRN (22:00)
[2017-06-24] MEDS: THIAMINE HCL 100 MG TABLET (FP) PO SCH (22:32)
--- NOTE | 2017-06-25 09:16 | PN ---
BHS COWS - Scale Resting Pulse: 1= [place] 81-100 Sweatin= Chills/Flushing Restless Observation: 3= Extraneous Movement Pupil Size: 0= Normal to Room Light Bone or Joint Aches: 2= Severe Diffuse Aches Runny Nose/ Eye Tearin= Runny Nose/Eyes GI Upset > 30mins: 1= Stomach Cramp Tremor Observation of Outstretched Hands: 2= Slight Tremor Visible Yawning Observation: 1= 1-2x During Session Anxiety or Irritability: 2=Irritable/Anxious Goose Flesh Skin: 0=Smooth Skin COWS Score: 15 BHS Progress Note (SOAP) Subjective: sweat tremor restlessness joint aches anxiety GI upset Objective: 06/25/17 09:19 Vital Signs Temperature 97.7 F 06/25/17 06:00 Pulse Rate 82 06/25/17 06:00 Respiratory Rate 18 06/25/17 06:00 Blood Pressure 124/74 06/25/17 06:00 O2 Sat by Pulse Oximetry (%) Laboratory Last Values Urine Color [place] 06/24/17 14:30 Urine Appearance Clear 06/24/17 14:30 Urine pH 5.0 (5.0-8.0) 06/24/17 14:30 Ur Specific [place] 1.031 (1.001-1.035) 06/24/17 14:30 Urine Protein Negative (NEGATIVE) 06/24/17 14:30 Urine Glucose (UA) Negative (NEGATIVE) 06/24/17 14:30 Urine Ketones Negative (NEGATIVE) 06/24/17 14:30 Urine Blood Negative (NEGATIVE) 06/24/17 14:30 Urine Nitrite Negative (NEGATIVE) 06/24/17 14:30 Urine Bilirubin Negative (NEGATIVE) 06/24/17 14:30 Urine Urobilinogen 2.0 mg/dL (0.2-1.0) 06/24/17 14:30 Ur Leukocyte Esterase Negative (NEGATIVE) 06/24/17 14:30 lab noted Assessment: 06/25/17 09:20 withdrawal sx Plan: continue detox
[2017-06-25] MEDS ORDERED: METHADONE HCL 10 MG TABLET (FOR DETOX USE ONLY) PO ONE (10:00)
[2017-06-25 10:26] LABS: CHLORIDE 106 mmol/L (98-107); POTASSIUM 3.8 mmol/L (3.5-5.1); SODIUM 140 mmol/L (136-145)
[2017-06-25 10:28] LABS: HEMOGLOBIN 14.1 GM/dL (11.7-16.9); MCH 25.7 pg (25.7-33.7); MCHC 31.4 g/dl (32.0-35.9); MEAN PLT VOLUME 8.5 fl (7.5-11.1); PLATELET COUNT 243 K/MM3 (134-434); RBC 5.48 M/mm3 (4.00-5.60); RDW 15.7 % (11.9-15.9); WHITE BLOOD COUNT 8.8 K/mm3 (4.0-10.0)
[2017-06-25] MEDS: PRENATAL VITAMINS W/ FOLIC ACID TABLET (FP) PO SCH (10:34)
[2017-06-25] MEDS: diazePAM 5 MG TABLET PO PRN ×2 (10:35→22:30)
[2017-06-25] MEDS: NICOTINE 21 MG/24 HOURS TOPICAL PATCH TD SCH (10:36)
[2017-06-25 10:46] LABS: ALK PHOS 81 U/L (45-117); ANION GAP 7 (8-16); BILIRUBIN,TOTAL 0.5 mg/dL (0.2-1.0); BLOOD UREA NITROGEN 12 mg/dL (7-18); CALCIUM 8.3 mg/dL (8.5-10.1); CO2 27 mmol/L (21-32); GLUCOSE,RANDOM 96 mg/dL (74-106); SGOT/AST 6 U/L (15-37); SGPT/ALT 12 U/L (12-78); TOT PROT 6.9 g/dl (6.4-8.2)
[2017-06-25] MEDS: THIAMINE HCL 100 MG TABLET (FP) PO SCH (22:30)
[2017-06-26] MEDS ORDERED: METHADONE HCL 5 MG TABLET (FOR DETOX USE ONLY) PO ONE (10:00)
[2017-06-26] MEDS: PRENATAL VITAMINS W/ FOLIC ACID TABLET (FP) PO SCH (10:09)
[2017-06-26] MEDS: NICOTINE 21 MG/24 HOURS TOPICAL PATCH TD SCH (10:11)
[2017-06-26] MEDS: diazePAM 5 MG TABLET PO PRN ×2 (10:12→22:14)
--- NOTE | 2017-06-26 10:33 | PN ---
BHS COWS - Scale Resting Pulse: 1= [place] 81-100 Sweatin=Flushed/Facial Moisture Restless Observation: 0= Sits Still Pupil Size: 0= Normal to Room Light Bone or Joint Aches: 2= Severe Diffuse Aches Runny Nose/ Eye Tearin= Runny Nose/Eyes GI Upset > 30mins: 1= Stomach Cramp Tremor Observation of Outstretched Hands: 1= Tremor [place], Not Seen Yawning Observation: 1= 1-2x During Session Anxiety or Irritability: 2=Irritable/Anxious Goose Flesh Skin: 0=Smooth Skin COWS Score: 12 BHS Progress Note (SOAP) Subjective: sweats chills interrupted sleep agitation Objective: 06/26/17 10:33 Vital Signs Temperature 97.7 F 06/26/17 06:00 Pulse Rate 80 06/26/17 06:00 Respiratory Rate 18 06/26/17 06:00 Blood Pressure 99/62 06/26/17 06:00 O2 Sat by Pulse Oximetry (%) Laboratory Tests 06/24/17 06/25/17 06/25/17 14:30 05:45 05:45 WBC 8.8 RBC 5.48 Hgb 14.1 Hct 45.0 MCV 82.0 MCH 25.7 MCHC 31.4 L RDW 15.7 Plt Count 243 MPV 8.5 Sodium 140 Potassium 3.8 Chloride 106 Carbon Dioxide 27 Anion Gap 7 L BUN 12 Creatinine 1.0 Creat Clearance w eGFR > 60 Random Glucose 96 D Calcium 8.3 L Total Bilirubin 0.5 AST 6 L D ALT 12 D Alkaline Phosphatase 81 Total Protein 6.9 Albumin 4.0 Urine Color [place] Urine Appearance Clear Urine pH 5.0 Ur Specific [place] 1.031 Urine Protein Negative Urine Glucose (UA) Negative Urine Ketones Negative Urine Blood Negative Urine Nitrite Negative Urine Bilirubin Negative Urine Urobilinogen 2.0 Ur Leukocyte Esterase Negative RPR Titer 06/25/17 05:45 WBC RBC Hgb Hct MCV MCH MCHC RDW Plt Count MPV Sodium Potassium Chloride Carbon Dioxide Anion Gap BUN Creatinine Creat Clearance w eGFR Random Glucose Calcium Total Bilirubin AST ALT Alkaline Phosphatase Total Protein Albumin Urine Color Urine Appearance Urine pH Ur Specific [place] Urine Protein Urine Glucose (UA) Urine Ketones Urine Blood Urine Nitrite Urine Bilirubin Urine Urobilinogen Ur Leukocyte Esterase RPR Titer Nonreactive aaox3 ambulating no acute distress Assessment: 06/26/17 10:33 withdrawal sx Plan: continue detox increase fluids
[2017-06-26] MEDS: THIAMINE HCL 100 MG TABLET (FP) PO SCH (22:14)
[2017-06-27 06:59] VITALS: PULSE 94
--- NOTE | 2017-06-27 08:25 | PN ---
BHS Progress Note (SOAP) Subjective: alert,irritable,anxious,interrupted sleep,tremor,pain in the body and back Objective: 06/27/17 08:24 Vital Signs Temperature 98.1 F 06/27/17 06:58 Pulse Rate 94 H 06/27/17 06:58 Respiratory Rate 18 06/27/17 06:58 Blood Pressure 102/66 06/27/17 06:58 O2 Sat by Pulse Oximetry (%) Assessment: 06/27/17 08:24 withdrawal symptom Plan: continue detox
--- NOTE | 2017-06-27 08:26 | PN ---
S Progress Note Note: patient did not want to complete treatment,stated he has to go to work,signed release ama,seen by counselor
--- NOTE | 2017-06-27 08:30 | DS ---
[facility] Detox Discharge Summary Admission Date: 06/24/17 Discharge Date: 06/27/17 - History Present History: Opioid Dependence Additional Comments: patient did not want to complete treatment stated he is going to work,signed release ama,seen by counselor Pertinent Past History: nicotine dependence - Physical Exam Results Vital Signs: Vital Signs Temperature 98.1 F 06/27/17 06:58 Pulse Rate 94 H 06/27/17 06:58 Respiratory Rate 18 06/27/17 06:58 Blood Pressure 102/66 06/27/17 06:58 O2 Sat by Pulse Oximetry (%) Pertinent Admission Physical Exam Findings: withdrawal symptom and finding - Treatment Patient has Accepted a Rehab Referral to: declined - Medication Discharge Medications: Ambulatory Orders NK [No Known Home Medication] 01/07/17 - AMA Did Patient Leave Against Medical Advice: Yes
[2017-06-27 09:56] VITALS: BP 110/54; TEMP 98.4
[2017-06-27] MEDS ORDERED: METHADONE HCL 10 MG TABLET (FOR DETOX USE ONLY) PO ONE (10:00)
[2017-06-27] MEDS: NICOTINE 21 MG/24 HOURS TOPICAL PATCH TD SCH (11:13)
[2017-06-27] MEDS: PRENATAL VITAMINS W/ FOLIC ACID TABLET (FP) PO SCH (11:13)
[2017-06-28] MEDS ORDERED: METHADONE HCL 5 MG TABLET (FOR DETOX USE ONLY) PO ONE (06:00)
== END 2017-06-27 09:18 | disposition left against medical advice (07) | DRG 770 ==
LOC: YASAS 08:23 → Y6N 12:47
PROVIDERS: ADMIT Internal Medicine; ATTEND Internal Medicine
PROC: HZ2ZZZZ Detoxification Services for Substance Abuse Treatment (ICD-10-PCS; principal; 2017-06-24)
DX: F11.23 Opioid dependence with withdrawal (principal); F17.210 Nicotine dependence, cigarettes, uncomplicated; F41.9 Anxiety disorder, unspecified; F32.9 Major depressive disorder, single episode, unspecified; G47.00 Insomnia, unspecified; E86.0 Dehydration; E66.9 Obesity, unspecified; Z68.35 Body mass index [BMI] 35.0-35.9, adult
CPT/HCPCS: 36415; 80053; 81003; 85027; 86593; 93005; 93010

== ENCOUNTER 2021-01-13 08:59 | Inpatient (IN) | payer SELFPAY ==
[2021-01-13 09:13] VITALS: BMI 37.8
[2021-01-13] MEDS ORDERED: NICOTINE POLACRILEX 2 MG GUM BUC PRN (09:45)
[2021-01-13] MEDS ORDERED: ONDANSETRON *ODT* 4 MG TABLET SL PRN (09:45)
[2021-01-13] MEDS ORDERED: NICOTINE 10 MG CARTRIDGE (INHALER) IH PRN (09:45)
[2021-01-13] MEDS ORDERED: cloNIDine HCL 0.1 MG TABLET PO PRN (09:45)
[2021-01-13] MEDS ORDERED: clonazePAM 0.5 MG ODT TABLETS SL PRN (09:45)
[2021-01-13] MEDS ORDERED: methaDONE HCL 10 MG TABLET (FOR DETOX USE ONLY) PO ONE (09:45)
[2021-01-13] MEDS ORDERED: ACETAMINOPHEN 325 MG TABLET (FP) PO PRN ×2 (09:45)
[2021-01-13] MEDS ORDERED: MAG HYDROX/AL HYDROX/SIMETH 30 ML UNIT-DOSE CUP PO PRN (09:45)
[2021-01-13] MEDS ORDERED: MENTHOL/PHENOL 1 EACH UD MM PRN (09:45)
[2021-01-13] MEDS ORDERED: MAGNESIUM CITRATE 300 ML BOTTLE PO PRN (09:45)
[2021-01-13] MEDS ORDERED: IBUPROFEN 400 MG TABLET (FP) PO PRN (09:45)
[2021-01-13] MEDS ORDERED: BISMUTH SUBSALICYLATE 524 MG/30 ML PO PRN (09:45)
[2021-01-13] MEDS ORDERED: MAGNESIUM HYDROX 2400MG/30ML ORAL SUSPENSION 30 ML CUP PO PRN (09:45)
[2021-01-13] MEDS ORDERED: methaDONE HCL 10 MG TABLET (FOR DETOX USE ONLY) ONE (11:20)
[2021-01-13] MEDS ORDERED: hydrOXYzine PAMOATE 25 MG CAPSULE (FP) PO ONE (11:20)
[2021-01-13] MEDS: hydrOXYzine PAMOATE 25 MG CAPSULE (FP) PO SCH ×4 (11:27→22:38)
[2021-01-13] MEDS: PRENATAL VITAMINS W/ FOLIC ACID TABLET (FP) PO SCH (12:33)
[2021-01-13] MEDS: MELATONIN 5 MG TABLETS PO SCH (22:38)
[2021-01-13] MEDS: METHOCARBAMOL 500 MG TABLET PO PRN (22:38)
[2021-01-13] MEDS: THIAMINE HCL 100 MG TABLET (FP) PO SCH (22:38)
[2021-01-14] MEDS: hydrOXYzine PAMOATE 25 MG CAPSULE (FP) PO SCH ×5 (05:34→22:11)
[2021-01-14] MEDS ORDERED: methaDONE HCL 10 MG TABLET (FOR DETOX USE ONLY) ONE (09:32)
[2021-01-14] MEDS: PRENATAL VITAMINS W/ FOLIC ACID TABLET (FP) PO SCH (10:32)
[2021-01-14] MEDS: METHOCARBAMOL 500 MG TABLET PO PRN ×2 (10:33→22:11)
[2021-01-14 18:30] LABS: HEMOGLOBIN 14.4 GM/dL (11.7-16.9); MCH 26.9 pg (25.7-33.7); MCHC 33.4 g/dl (32.0-35.9); MEAN CELL VOLUME 80.6 fl (80-96); MEAN PLT VOLUME 7.8 fl (7.5-11.1); PLATELET COUNT 203 10^3/uL (134-434); RBC 5.33 M/mm3 (4.00-5.60); RDW 15.5 % (11.9-15.9); WHITE BLOOD COUNT 6.7 K/mm3 (4.0-10.0)
[2021-01-14 18:35] LABS: ALBUMIN 3.5 g/dl (3.4-5.0); CALCIUM 8.3 mg/dL (8.5-10.1)
[2021-01-14 18:36] LABS: BLOOD UREA NITROGEN 12.7 mg/dL (7-18)
[2021-01-14 18:38] LABS: CREATININE 1.1 mg/dL (0.55-1.3)
[2021-01-14 18:40] LABS: BILIRUBIN,TOTAL 0.5 mg/dL (0.2-1); TOT PROT 6.5 g/dl (6.4-8.2)
[2021-01-14] MEDS: THIAMINE HCL 100 MG TABLET (FP) PO SCH (22:11)
[2021-01-14] MEDS: MELATONIN 5 MG TABLETS PO SCH (22:11)
[2021-01-15 06:18] VITALS: PULSE 89
[2021-01-15] MEDS: hydrOXYzine PAMOATE 25 MG CAPSULE (FP) PO SCH (07:12)
[2021-01-15] MEDS ORDERED: hydrOXYzine PAMOATE 25 MG CAPSULE (FP) PO PRN (07:37)
[2021-01-15] MEDS ORDERED: methaDONE HCL 10 MG TABLET (FOR DETOX USE ONLY) PO ONE (10:00)
[2021-01-15 15:17] VITALS: BP 126/76; TEMP 96.6
[2021-01-17] MEDS ORDERED: methaDONE HCL 10 MG TABLET (FOR DETOX USE ONLY) PO ONE (10:00)
== END 2021-01-15 09:53 | disposition left against medical advice (07) | DRG 770 ==
LOC: YASAS 08:59 → Y6N 12:41 → Y3N 01-14 14:17
PROVIDERS: ADMIT Allergy & Immunology; ATTEND Allergy & Immunology
PROC: HZ2ZZZZ Detoxification Services for Substance Abuse Treatment (ICD-10-PCS; principal; 2021-01-13)
DX: F11.23 Opioid dependence with withdrawal (principal); F17.210 Nicotine dependence, cigarettes, uncomplicated; F41.9 Anxiety disorder, unspecified; F32.9 Major depressive disorder, single episode, unspecified; G47.00 Insomnia, unspecified
CPT/HCPCS: 36415; 80053; 85027; 86780; 93005; 93010; C9803; U0003; U0005

== ENCOUNTER 2022-09-10 15:36 | Inpatient (IN) | payer BC ==
[2022-09-10 16:28] VITALS: BMI 37.8
[2022-09-10] MEDS ORDERED: BISMUTH SUBSALICYLATE 524 MG/30 ML PO PRN (19:50)
[2022-09-10] MEDS ORDERED: NALOXONE HCL (KLOXXADO) 8 MG SPRAY NS PRN (19:50)
[2022-09-10] MEDS ORDERED: P-EPHED 60MG/TRIPROLIDI 2.5MG TABLET PO PRN (19:50)
[2022-09-10] MEDS ORDERED: guaiFENesin 600 MG TABLET.ER (FP) PO PRN (19:50)
[2022-09-10] MEDS ORDERED: IBUPROFEN 600 MG TABLET (FP) PO PRN (19:50)
[2022-09-10] MEDS ORDERED: NICOTINE POLACRILEX 2 MG GUM BUC PRN (19:50)
[2022-09-10] MEDS ORDERED: BENZONATATE 200 MG CAPSULE PO PRN (19:50)
[2022-09-10] MEDS ORDERED: ACETAMINOPHEN 325 MG TABLET (FP) PO PRN (19:50)
[2022-09-10] MEDS ORDERED: DICYCLOMINE HCL 10 MG CAPSULE PO PRN (19:50)
[2022-09-10] MEDS ORDERED: NICOTINE 10 MG CARTRIDGE (INHALER) IH PRN (19:50)
[2022-09-10] MEDS ORDERED: LOPERAMIDE HCL 2 MG CAPSULE PO PRN (19:50)
[2022-09-10] MEDS ORDERED: BENZOCAINE/MENTHOL (CHLORASEPTIC ) LOZENGE MM PRN (19:50)
[2022-09-10] MEDS ORDERED: POLYETHYLENE GLYCOL (HEALTHYLAX) 3350 17 GM PACKET PO PRN (19:50)
[2022-09-10] MEDS ORDERED: MAGNESIUM HYDROX 2400MG/30ML ORAL SUSPENSION 30 ML CUP PO PRN (19:50)
[2022-09-10] MEDS ORDERED: IBUPROFEN 400 MG TABLET (FP) PO PRN (19:50)
[2022-09-10] MEDS ORDERED: NALOXONE HCL 0.4 MG/ML VIAL IM PRN (19:50)
[2022-09-10] MEDS ORDERED: MAG HYDROX/AL HYDROX/SIMETH 30 ML UNIT-DOSE CUP PO PRN (19:50)
[2022-09-10] MEDS: MELATONIN 5 MG TABLETS PO PRN (22:54)
[2022-09-10] MEDS: METHOCARBAMOL 500 MG TABLET PO PRN (22:54)
[2022-09-10] MEDS: THIAMINE HCL 100 MG TABLET (FP) PO SCH (22:54)
[2022-09-10] MEDS: hydrOXYzine PAMOATE 25 MG CAPSULE (FP) PO PRN (22:54)
[2022-09-11] MEDS: hydrOXYzine PAMOATE 25 MG CAPSULE (FP) PO PRN (06:26)
[2022-09-11] MEDS: ONDANSETRON *ODT* 4 MG TABLET SL PRN (09:58)
[2022-09-11] MEDS ORDERED: methaDONE HCL 10 MG TABLET (FOR DETOX USE ONLY) PO ONE (10:05)
[2022-09-11] MEDS ORDERED: cloNIDine HCL 0.1 MG TABLET PO PRN (10:05)
[2022-09-11] MEDS: PRENATAL VITAMINS W/ FOLIC ACID TABLET (FP) PO SCH (10:42)
[2022-09-11 11:32] LABS: HEMATOCRIT 42.3 % (35.4-49); HEMOGLOBIN 13.9 GM/dL (11.7-16.9); MCH 26.8 pg (25.7-33.7); MCHC 32.9 g/dl (32.0-35.9); MEAN CELL VOLUME 81.4 fl (80-96); MEAN PLT VOLUME 7.3 fl (7.5-11.1); PLATELET COUNT 193 10^3/uL (134-434); RDW 15.5 % (11.9-15.9); WHITE BLOOD COUNT 9.3 K/mm3 (4.0-10.0)
[2022-09-11 11:34] LABS: POTASSIUM 4.1 mmol/L (3.5-5.1)
[2022-09-11 11:40] LABS: ALBUMIN 3.6 g/dl (3.4-5.0); BLOOD UREA NITROGEN 16.9 mg/dL (7-18); CALCIUM 9.1 mg/dL (8.5-10.1)
[2022-09-11 11:44] LABS: CREATININE 1.1 mg/dL (0.55-1.3); TOT PROT 6.6 g/dl (6.4-8.2)
[2022-09-11 11:47] LABS: BILIRUBIN,TOTAL 0.4 mg/dL (0.2-1)
[2022-09-11] MEDS: MELATONIN 5 MG TABLETS PO PRN (22:35)
[2022-09-11] MEDS: THIAMINE HCL 100 MG TABLET (FP) PO SCH (22:38)
[2022-09-12] MEDS: ONDANSETRON *ODT* 4 MG TABLET SL PRN (01:38)
[2022-09-12] MEDS: hydrOXYzine PAMOATE 25 MG CAPSULE (FP) PO PRN (02:04)
[2022-09-12] MEDS: METHOCARBAMOL 500 MG TABLET PO PRN (02:04)
[2022-09-12] MEDS: PRENATAL VITAMINS W/ FOLIC ACID TABLET (FP) PO SCH (10:23)
[2022-09-12 17:20] VITALS: BP 110/67; PULSE 97; RESP 18; TEMP 97.5
[2022-09-13] MEDS ORDERED: methaDONE HCL 10 MG TABLET (FOR DETOX USE ONLY) PO ONE (10:00)
[2022-09-15] MEDS ORDERED: methaDONE HCL 10 MG TABLET (FOR DETOX USE ONLY) PO ONE (10:00)
== END 2022-09-12 17:01 | disposition left against medical advice (07) | DRG 894 ==
LOC: YASAS 15:36 → Y3N 22:32
PROVIDERS: ADMIT Allergy & Immunology; ATTEND Surgery
PROC: HZ2ZZZZ Detoxification Services for Substance Abuse Treatment (ICD-10-PCS; principal; 2022-09-10)
DX: F11.23 Opioid dependence with withdrawal (principal); F19.280 Other psychoactive substance dependence with psychoactive substance-induced anxiety disorder; F17.210 Nicotine dependence, cigarettes, uncomplicated; G47.00 Insomnia, unspecified
CPT/HCPCS: 36415; 80053; 85027; 86780; C9803-CS; Q0162; U0003; U0005